=== PATIENT | male | born 1985 | race Caucasian/White ===

== ENCOUNTER 2017-02-14 17:20 | Emergency (ER) | payer OTHER, SELFPAY ==
[2017-02-14 17:40] VITALS: BP 138/75; PULSE 127; RESP 20; TEMP 37.7; O2SAT 98; BMI 26.6
[2017-02-14 17:53] LABS: UTC Influenza A Antigen Negative (Negative); UTC Influenza B Antigen Negative (Negative)
--- NOTE | 2017-02-14 18:01 | HMH.EDUTC ---
[facility] [place] Disposition Clinical Impression: Influenza-like illness Disposition: Home, Self-Care Condition on Discharge: Good Instructions: DI for Influenza -- Adult Additional Instructions: * No sign of bacterial infection. Likely viral. Virus can take 7-14 days to run their course. Could be the onset of the flu or a number of other viruses. Follow up tomorrow for repeat test if you want a repeat flu test. * Monitor Temp. Tylenol every 4 hours as needed no more then 5 times a day or 4000mg in 24 hours and/or ibuprofen every 6 hours as needed no more then 3200mg in 24 hours (as long as your primary care doctor has told you that it is ok to take both) for fever/aches/pain. ER if fever no less than 101 despite tylenol and ibuprofen * Encourage fluids, water, gatorade, powerade, pedialyte if infant/toddler/child * warm salt water gargles * warm fluids * sore throat lozenges * sleep elevated * humidifier/vaporizer * You (or your child) are contagious until no fever, aches, chills x 24 hours without medication for symptoms. Referrals: Provider,Referral, MD [Primary Care Provider] - (See primary care or return to [facility] IMMEDIATELY for new or worsening symptoms, improvement followed by suddenly feeling worse OR no noticeable improvement over the next 48-72 hours. 911 for difficulty breathing ) Time of Disposition: 18:21 Medical Decision Making Vital Signs: 02/14/17 17:40 Temperature 100 F H Temperature Source Temporal Artery Scan Pulse Rate [Brachial] 127 H Respiratory Rate 20 Blood Pressure [Left Arm] 138/75 Blood Pressure Mean [Left Arm] 96 Blood Pressure Source [Left Arm] Automatic Cuff Blood Pressure Position [Left Arm] Sitting 02 Sat by Pulse Oximetry 98 Oxygen Delivery Method Room Air - Lab Data Lab Results 02/14/17 17:52: Influenza Type A Ag Negative, Influenza Type B Ag Negative - Leonard Inquiry Pt receiving controlled substance: No [facility] [place] HPI - General Stated complaint: body aches,fever,cough Time Seen by Provider: 02/14/17 18:02 Mode of Arrival: Ambulatory Source of Information: Patient Limitations: No Limitations Description of Symptoms (Recalled from Triage Doc. by RN): STARTED WITH COUGH LAST NIGHT AND THEN A FEVER AND BODY ACHES. HEENT Symptoms (Recalled from RN notes): Yes Resp Symptoms (Recalled from RN notes): No Skin Symptoms (Recalled from RN notes): No MS Symptoms (Recalled from RN notes): No Functional Status (Recalled from RN notes): NA - History of Present Illness Provider Complaint: c/o fever, bodyaches, cough starting last night. Fever better today but cough and now fatigue. 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 Has not had flu vaccine. Fever assurance senior last night helped. No treatment today - Related Data Home Medications Medication Instructions Recorded Confirmed No Known Home Medications [No 02/14/17 02/14/17 Known Home Medications] Allergies Allergy/AdvReac Type Severity Reaction Status Date / Time From TYLENOL W/CODEINE #3 AdvReac Unknown NA-NAUSEA/V Uncoded 01/27/17 15:15 OMITING - Worker's Comp Is this a Worker's Comp case?: No [facility] [place] History I have reviewed the patient's past medical history: Yes (no pertinent history) Other Surgeries: Yes: Other (wisdom teeth extraction and cyst on wrist) - *Social History Smoking Status: Never smoker Alcohol Intake: never - Psychiatric History Expresses thoughts of harming self/others: None Suicide Plan Description: No Plan ROS Obtained: Yes Appropriate systems reviewed & no add complaints except as noted - Constitutional Reports anorexia ( maybe a little today ), Reports body ache(s), Reports chills, Reports fatigue, Reports fever(s), Reports headache(s) - Eyes Denies discharge, Denies pain - ENT Denies abnormal hearing, Denies ear pain, Denies nasal congestion, Denies nasal discharge, Denies post nasal drip, Denies sore throat - Cardiovascular Denies rapid, pounding, or irregular heartbeat
--- NOTE | 2017-02-14 18:10 | ED_ITS ---
[facility] – [place] Disposition Clinical Impression: Influenza-like illness Disposition: Home, Self-Care Condition on Discharge: Good Instructions: DI for Influenza -- Adult Additional Instructions: * No sign of bacterial infection. Likely viral. Virus can take 7-14 days to run their course. Could be the onset of the flu or a number of other viruses. Follow up tomorrow for repeat test if you want a repeat flu test. * Monitor Temp. Tylenol every 4 hours as needed no more then 5 times a day or 4000mg in 24 hours and/or ibuprofen every 6 hours as needed no more then 3200mg in 24 hours (as long as your primary care doctor has told you that it is ok to take both) for fever/aches/pain. ER if fever no less than 101 despite tylenol and ibuprofen * Encourage fluids, water, gatorade, powerade, pedialyte if infant/toddler/ child * warm salt water gargles * warm fluids * sore throat lozenges * sleep elevated * humidifier/vaporizer * You (or your child) are contagious until no fever, aches, chills x 24 hours without medication for symptoms. Referrals: Provider,Referral, MD [Primary Care Provider] - (See primary care or return to [facility] IMMEDIATELY for new or worsening symptoms, improvement followed by suddenly feeling worse OR no noticeable improvement over the next 48-72 hours. 911 for difficulty breathing ) Time of Disposition: 18:21 Medical Decision Making Vital Signs: 02/14/17 17:40 Temperature 100 F H Temperature Source Temporal Artery Scan Pulse Rate [Brachial] 127 H Respiratory Rate 20 Blood Pressure [Left Arm] 138/75 Blood Pressure Mean [Left Arm] 96 Blood Pressure Source [Left Arm] Automatic Cuff Blood Pressure Position [Left Arm] Sitting 02 Sat by Pulse Oximetry 98 Oxygen Delivery Method Room Air - Lab Data Lab Results 02/14/17 17:52: Influenza Type A Ag Negative, Influenza Type B Ag Negative - Leonard Inquiry Pt receiving controlled substance: No [facility] [place] HPI - General Stated complaint: body aches,fever,cough Time Seen by Provider: 02/14/17 18:02 Mode of Arrival: Ambulatory Source of Information: Patient Limitations: No Limitations Description of Symptoms (Recalled from Triage Doc. by RN): STARTED WITH COUGH LAST NIGHT AND THEN A FEVER AND BODY ACHES. HEENT Symptoms (Recalled from RN notes): Yes Resp Symptoms (Recalled from RN notes): No Skin Symptoms (Recalled from RN notes): No MS Symptoms (Recalled from RN notes): No Functional Status (Recalled from RN notes): NA - History of Present Illness Provider Complaint: c/o fever, bodyaches, cough starting last night. Fever better today but cough and now fatigue. 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 Has not had flu vaccine. 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 No treatment today - Related Data Home Medications Medication Instructions Recorded Confirmed No Known Home Medications [No 02/14/17 02/14/17 Known Home Medications] Allergies Allergy/AdvReac Type Severity Reaction Status Date / Time From TYLENOL W/CODEINE #3 AdvReac Unknown NA-NAUSEA/V Uncoded 01/27/17 15:15 OMITING - Worker's Comp Is this a Worker's Comp case?: No [facility] History I have reviewed the patient's past medical history: Yes (no pertinent history) Other Surgeries: Yes: Other (wisdom teeth extraction and cyst on wrist) - *Social History Smoking Status: Never smoker Alcohol Intake: never
== END 2017-02-14 18:25 | disposition home or self-care (01) ==
PROVIDERS: Emergency Provider Nurse Practitioner Family; Family Provider Family Medicine
DX: J11.1 Influenza due to unidentified influenza virus with other respiratory manifestations (principal)
CPT/HCPCS: 87276; 87804; 99202

== ENCOUNTER 2019-11-13 13:15 | Emergency (ER) | payer OTHER, SELFPAY ==
[2019-11-13 13:26] VITALS: BP 129/77; PULSE 138; RESP 18; TEMP 36.8; O2SAT 98; BMI 27.4
--- NOTE | 2019-11-13 13:58 | HMH.EDUTC ---
[facility] [place] Disposition Clinical Impression: Sinusitis Qualifiers: Sinusitis location: unspecified location Chronicity: unspecified Qualified Code(s): J32.9 - Chronic sinusitis, unspecified Disposition: Home, Self-Care Condition on Discharge: Good Instructions: Sinusitis, Sinus Headache, DI for Sinusitis, Amoxicillin and Clavulanic Acid, Fluticasone Nasal [place] Additional Instructions: *Monitor Temp, Over the counter Motrin or Tylenol as directed/as needed Tylenol every 4 hours and Motrin every 6 hours (as long as your family doctor has told you that you can take it) for fever or pain. and straight to ER if unable to lower temp less than 101.0 after medication given *Warm salt water gargles may help to soothe the throat *Throat Lozenges *Warm fluids like tea with honey may help to soothe the throat *Sleep elevated *Humidifier/Vaporizer *Flonase 2 sprays in each nostril daily but be aware that it may take 2-3 days before you notice improvement Take medication as prescribed Watch over the counter cold medications they can increase your heart rate and cause palpations Return if needed Straght to ER if any life threatening symtpoms Follow up IMMEDIATELY for new or worsening symptoms or no Noticeable improvement over the next 48-72 hours. 911 for difficulty breathing or swallowing Prescriptions: Amoxicillin/Potassium Clav [Augmentin 875-125 Tablet] 1 tab PO Q12H 7 Days #14 tab Prescription Printed Fluticasone Propionate [Flonase 50mcg nasal spray 16gm] 1 - 2 spr NS DAILY #1 bottle Prescription Printed Referrals: Abdi Medina MD [Primary Care Provider] - As needed Forms: Work/School Release Medical Decision Making - Leonard Inquiry Pt receiving controlled substance: No Leonard was queried for this patient: No Vital Signs: 11/13/19 13:26 Temperature 98.3 F Temperature Source Oral Pulse Rate [Radial] 138 H Respiratory Rate 18 Blood Pressure [Right Arm] 129/77 Blood Pressure Mean [Right Arm] 94 Blood Pressure Source [Right Arm] Automatic Cuff Blood Pressure Position [Right Arm] Sitting 02 Sat by Pulse Oximetry 98 Oxygen Delivery Method Room Air [facility] [place] HPI - General Stated complaint: headache,stuffy nose Time Seen by Provider: 11/13/19 13:58 Mode of Arrival: Ambulatory Source of Information: Patient Limitations: No Limitations Description of Symptoms (Recalled from Triage Doc. by RN): possible sinus infection started thursday. Sinus pressure and drainage. HEENT Symptoms (Recalled from RN notes): Yes Resp Symptoms (Recalled from RN notes): No Skin Symptoms (Recalled from RN notes): No MS Symptoms (Recalled from RN notes): No Functional Status (Recalled from RN notes): wnl - History of Present Illness Provider Complaint: Patient states that he has been having sinus pain and pressure for over a week that started getting worse yesterday States that he is having pressure behind his eyes and in his teeth States that he has been taking over the counter cold medication and it hasnt helped much so he come in - Related Data Previous Rx's Medication Instructions Recorded Amoxicillin/Potassium Clav 1 tab PO Q12H 7 Days #14 tab 11/13/19 [Augmentin 875-125 Tablet] Fluticasone Propionate [Flonase 1 - 2 spr NS DAILY #1 bottle 11/13/19 50mcg nasal spray 16gm] Allergies Allergy/AdvReac Type Severity Reaction Status Date / Time From TYLENOL W/CODEINE #3 AdvReac Unknown NA-NAUSEA/V Uncoded 01/27/17 15:15 OMITING - Worker's Comp Is this a Worker's Comp case?: No [facility] History - Hepatitis A Screen Drug use history?: No High risk sexual behaviors?: No History of sexually transmitted infection?: No Currently employed?: No Childcare worker?: No Do you have indoor plumbing?: Yes Do you have electricity?: Yes Attestation statement:: This patient has been screened for Hepatitis A risk factors. I have reviewed the patient's past medical history: Yes Other Surgeries: Yes: Other (wisdom teeth extr
[2019-11-13 14:29] VITALS: BP 129/77; PULSE 138; RESP 18; TEMP 36.8; O2SAT 98
== END 2019-11-13 14:29 | disposition home or self-care (01) ==
PROVIDERS: Emergency Provider Nurse Practitioner; PCP Family Medicine
DX: J32.9 Chronic sinusitis, unspecified (principal)
CPT/HCPCS: 99201

== ENCOUNTER → 2022-12-17 12:56 | Outpatient (CLI) | payer BC, SELFPAY ==
--- NOTE | 2022-12-17 13:04 | US_ITS ---
FINAL REPORT TECHNIQUE: Sonographic images of the testicles and scrotum were obtained in the longitudinal and transverse planes. CLINICAL HISTORY: Left testicular lump COMPARISON: None FINDINGS: The right testicle measures 4.2 x 2.0 x 2.8 centimeters. There is no mass. There is a hypoechoic 4 mm lesion in the right epididymis which could represent a small cyst. The left testicle measures 4.0 x 1.5 x 3.1 centimeters. There is no mass. There is a 1.2 cm cyst in the left epididymal head consistent with epididymal cyst or spermatocele. Color imaging reveals positive blood flow with no evidence of testicular torsion. IMPRESSION: 1.2 cm left epididymal cyst or spermatocele. No evidence of intratesticular mass or testicular torsion. Reviewed, Interpreted and Dictated by Lissette Kurtz MD Transcribed by Kathy Aguayo Authenticated and [facility]
== END ==
PROVIDERS: PCP Nurse Practitioner Family; Visit Provider Nurse Practitioner Family
DX: N50.89 Other specified disorders of the male genital organs (principal)
CPT/HCPCS: 76870

== ENCOUNTER 2023-01-18 13:14 | Emergency (ER) | payer BC, SELFPAY ==
[2023-01-18 13:30] VITALS: BP 140/89; PULSE 89; RESP 17; TEMP 37.2; O2SAT 99; BMI 23.3
--- NOTE | 2023-01-18 14:01 | EXP.UTC ---
Discharge Plan Disposition Patient Disposition: Home, Self-Care Condition: Good Prescriptions Prescriptions: New pseudoephedrine HCl [Sudafed 12 Hour] 120 mg tablet extended release 120 mg PO Q12H PRN (Reason: nasal congestion) Qty: 20 0RF fluticasone propionate [Flonase Allergy Relief] 50 mcg/actuation spray,suspension 2 spray intranasal DAILY Qty: 16 0RF Rx Instructions: administer into each nostril daily amoxicillin 875 mg tablet 875 mg PO Q12H Qty: 20 0RF Referrals Follow up/Referrals: Vianney Monzon APRN [Primary Care Provider] - See instructions Activity Restrictions/Add. Instructions Additional Instructions/Restrictions: Take medication as prescribed FOllow up with your Family Doctor if no improvement or any worsening of symtpoms Return if needed Clinical Impressions Clinical Impression: Otitis media Qualifiers: Otitis media type: unspecified Laterality: right Qualified Code(s): H66.91 - Otitis media, unspecified, right ear Instructions Patient Instructions: Middle Ear Infection, Ear Infections (Alternative Therapy) Discharge ED Provider: Azul Camarillo [facility] [place] HPI General Stated complaint: head congestion, ear pain Mode of Arrival: Ambulatory Source of Information: Patient Limitations: No Limitations Time Seen by Provider: 01/18/23 14:01 Description of Symptoms (Recalled from Triage Doc. by RN): PATIENT C/O RIGHT EAR PAIN X 2 DAYS HEENT Symptoms (Recalled from RN notes): Yes Resp Symptoms (Recalled from RN notes): No Skin Symptoms (Recalled from RN notes): No MS Symptoms (Recalled from RN notes): No Functional Status (Recalled from RN notes): WNL History of Present Illness Provider Complaint: Patient states that he has been dealing with a head cold for a little bit then 2 days ago his right ear started hurting and last night it got worse and feels like it is throbbing in pain and today was not feeling any better so he came in Related Data Previous Rx's Medication Instructions Recorded amoxicillin 875 mg tablet 875 mg PO Q12H #20 tabs 01/18/23 fluticasone propionate 50 2 spray intranasal DAILY #16 grams 01/18/23 mcg/actuation nasal spray,suspension (Flonase Allergy Relief) pseudoephedrine HCl 120 mg 120 mg PO Q12H PRN nasal 01/18/23 tablet,extended release (Sudafed congestion #20 tabs 12 Hour) Allergies Allergy/AdvReac Type Severity Reaction Status Date / Time acetaminophen Allergy Verified 01/18/23 13:50 [From Tylenol-Codeine #3] codeine Allergy Verified 01/18/23 13:50 [From Tylenol-Codeine #3] Worker's Comp Is this a Worker's Comp case?: No [facility] Disclaimer: The information contained in this section may have been updated after the patient was seen, as this information can be updated by other users. Medical History (Updated 01/18/23 @ 14:07 by Azul Camarillo APRN) No significant past medical history Social History Smoking Status: Never smoker alcohol intake: never current occupational status: employed Travel in the last 8 weeks: None ROS Obtained: Yes All systems reviewed & no additional complaints except as documented and Yes Systems reviewed as appropriate & no additional complaints except as documented Constitutional Constitutional: Reports system reviewed and no additional complaints, except as documented, Reports as per HPI and Reports headache(s) ENT Ears, Nose, Mouth, and Throat: Reports system reviewed and no additional complaints, except as documented, Reports as per HPI, Reports otalgia, Reports headache(s), Reports nasal congestion and Reports nasal discharge Cardiovascular Cardiovascular: Reports system reviewed and no additional complaints, except as documented and Reports as per HPI Respiratory Respiratory: Reports system reviewed and no additional complaints, except as documented and Reports as per HPI Gastrointestinal Gastrointestingal: Reports system reviewed and no additional complaints, except as d
[2023-01-18 14:08] VITALS: BP 140/89; PULSE 89; RESP 17; TEMP 37.2; O2SAT 99
== END 2023-01-18 14:10 | disposition home or self-care (01) ==
PROVIDERS: Emergency Provider Nurse Practitioner; PCP Nurse Practitioner Family
DX: H66.91 Otitis media, unspecified, right ear (principal); R09.81 Nasal congestion
CPT/HCPCS: 99204; 99212; G0463